=== PATIENT | male | born 1935 | race Two or more races ===

== ENCOUNTER 2020-09-10 16:12 | Inpatient (IN) | payer OTHER ==
[~2020-09-10] VITALS: Ht 185.4 cm; Wt 91.4 kg
[2020-09-10] MEDS ORDERED: ASPirin 81 mg TAB PO ONE (16:30)
[2020-09-10] MEDS ORDERED: MAGNESIUM SULFATE 1GM/100ML 100 ML IV ONE (16:30)
[2020-09-10] MEDS ORDERED: SODIUM CHLORIDE 0.9% 1,000 ML IV ONE (16:30)
[2020-09-10] MEDS ORDERED: METOPROLOL SUCCINATE XL 50 MG TAB PO ONE (17:15)
[2020-09-10] MEDS ORDERED: FUROSEMIDE 40 MG/4 ML VIAL IV ONE (17:15)
[2020-09-10] MEDS ORDERED: METOPROLOL TARTRATE 1MG/1ML-5ML VIAL IV ONE (17:15)
[2020-09-10] MEDS ORDERED: DIGOXIN (250MCG/ML) 2 ML AMPULE IV ONE (17:15)
[2020-09-10 17:17] LABS: Basophils # (auto) 0 10 ^3/uL (0-0.2); Basophils % (auto) 0.2 % (0.0-2.0); Eosinophils # (auto) 0 10 ^3/uL (0-0.8); Eosinophils % (auto) 0.1 % (0.0-7.0); Hematocrit 43.2 % (41.0-53.0); Hemoglobin 14.2 g/dL (13.5-17.5); Lymphocytes % (auto) 10.1 % (10.0-50.0); Mean Corpuscular Hemoglobin 28.1 pg (28.0-32.0); Mean Corpuscular Hgb Conc. 32.9 g/dL (32.0-36.0); Mean Corpuscular Volume 85.4 fL (80.0-100.0); Monocytes # (auto) 1.1 10 ^3/uL (0-1.3); Monocytes % (auto) 11.2 % (0.0-12.0); Neutrophils # (auto) 7.7 10 ^3/uL (1.6-8.6); Neutrophils % (auto) 78.4 % (37.0-80.0); Nucleated Red Blood Cells % 0.2 %; Platelet Count (auto) 150 10^3/uL (140-450); Red Blood Cells 5.06 10^6/uL (4.5-5.90); Red Cell Distribution Width 15.1 % (11.8-14.3); White Blood Cell 9.8 10^3/uL (4.4-10.8)
[2020-09-10 17:30] LABS: Albumin 3.5 g/dL (3.4-5.0); Calcium 8.3 mg/dL (8.5-10.1); Potassium 3.8 mmol/L (3.5-5.1)
[2020-09-10] MEDS ORDERED: NITROGLYCERIN 0.4 MG SL TAB SL PRN ×2 (17:30→18:30)
[2020-09-10] MEDS ORDERED: ENOXAPARIN SOD 40 MG/0.4 ML SYRINGE SC ONE (17:30)
[2020-09-10] MEDS ORDERED: MORPHINE SULF INJ 2 MG/ML SYRINGE 1ML IV PRN ×3 (17:30→18:30)
[2020-09-10 17:34] LABS: INR 1.69 (0.9-1.15); Partial Thromboplastin Time 28.5 sec (23.0-31.2)
[2020-09-10 17:35] LABS: BUN/Creatinine Ratio 36.4; Bilirubin, Total 1.5 mg/dL (0.2-1.0); Total Protein 6.5 g/dL (6.4-8.2)
[2020-09-10] MEDS ORDERED: GLUCTAB8 PO (17:50)
[2020-09-10] MEDS ORDERED: OMEG306C PO (17:50)
[2020-09-10] MEDS ORDERED: VITA100T3 PO (17:50)
[2020-09-10] MEDS ORDERED: CHOL20007 PO (17:50)
[2020-09-10] MEDS ORDERED: CYAN1TAB11 PO (17:50)
[2020-09-10] MEDS ORDERED: ECHI80CA PO (17:50)
[2020-09-10] MEDS ORDERED: ASCO500T11 PO (17:50)
[2020-09-10] MEDS ORDERED: POM (17:53)
[2020-09-10 17:54] LABS: Cholesterol 161 mg/dL (< 200)
[2020-09-10 17:57] LABS: HDL Cholesterol 42 mg/dL (40-59); LDL Cholesterol 113 mg/dL (< 100); Triglycerides 96 mg/dL (< 150)
[2020-09-10] MEDS ORDERED: IOHEXOL 350 MG/ML 100ML IJ ONE (18:24)
[2020-09-10] MEDS ORDERED: ONDANSETRON HCL 4 MG/2 ML VIAL IV PRN (18:30)
[2020-09-10] MEDS ORDERED: ALUM & MAG HYDROX-SIMETH LIQ(MAALOX) 30 ML PO PRN (18:30)
[2020-09-10] MEDS ORDERED: HYDROcodone-ACET 5/325MG TAB PO PRN (18:30)
[2020-09-10] MEDS ORDERED: DOCUSATE SOD 100 MG CAP PO PRN (18:30)
[2020-09-10] MEDS ORDERED: ACETAMINOPHEN 325 MG TAB PO PRN (18:30)
[2020-09-10] MEDS ORDERED: ACETAMINOPHEN 500 MG TAB PO PRN (18:30)
[2020-09-10] MEDS ORDERED: CALCIUM GLUC 4.65meq/50ml D5AE 50 ML IV ONE (18:30)
[2020-09-10] MEDS ORDERED: LORazepam 0.5 MG TAB PO PRN (18:30)
--- NOTE | 2020-09-10 20:44 | NUR ---
tele covid rule out admit from ED pt arrived without report being called. pt via [employer] awake and alert to self, place, reason but had to be oriented as to date. pt on 3L nc no distress noted. pt denies any pain. pt oriented to this nurse and updated on plan of care. pt is tele #1 sinus tach 128bpm. pt did not receive 1730 med lovenox or 1830 med calcium gluconate iv as ordered, this nurse to administer meds per MD and MAR order. pt bed locked, low and 2x rails up. call light in reach, this nurse to round q1hr and prn. pt encouraged to call as needed. Addendum: 09/10/20 at 2306 by ANSELMO WRIGHT RN RN bed alarm active
[2020-09-10] MEDS: SODIUM CHLORIDE 0.9% 1,000 ML IV SCH (21:10)
[2020-09-10 22:00] VITALS: BP 132/86
[2020-09-10] MEDS ORDERED: DOXYCYCLINE 100MG/250ML 250 ML IV SCH (22:00)
[2020-09-10] MEDS ORDERED: ALBUTEROL SULF HFA 90MCG INH 200DOSE IN SCH (22:00)
[2020-09-10] MEDS ORDERED: BUDESONIDE (INHALATION) 180 MCG IH IN SCH (22:00)
[2020-09-11] VITALS (7 sets, daily range): BP systolic 105–132; BP diastolic 52–91
--- NOTE | 2020-09-11 01:22 | NUR ---
bed alarm sounded, this nurse to patient beside where pt sitting up and not responding to verbal cues. pt would shake head "no" when asked if in pain, however was attempting to pull off gown and leads. HR sustaining in the 160's hospitalist paged. ekg done shows sinus tach in the 160's. Addendum: 09/11/20 at 0126 by ANSELMO WRIGHT RN RN nurses remain at bedside whilst waiting for call back hospitalist. rocio baltazar notified.
--- NOTE | 2020-09-11 01:38 | NUR ---
pt voided on bed, pericare and linen change performed. pt no longer pulling at leads or attempting bed exit at this point, 2x rails up, bed locked and low to floor. call light in reach, pt denies any pain and breathing is even and unlabored on 2L.
--- NOTE | 2020-09-11 02:28 | NUR ---
rounds pt breathing even and unlabored at 2L nc. no s/s distress observed. bed locked, low and 2x rails up. call light in reach, will continue to monitor.
[2020-09-11] MEDS ORDERED: dilTIAZem 25 MG/5 ML VIAL IV ONE ×2 (02:45→02:50)
[2020-09-11 05:35] LABS: Basophils # (auto) 0 10 ^3/uL (0-0.2); Basophils % (auto) 0.1 % (0.0-2.0); Eosinophils # (auto) 0 10 ^3/uL (0-0.8); Eosinophils % (auto) 0.5 % (0.0-7.0); Hematocrit 42.8 % (41.0-53.0); Hemoglobin 13.7 g/dL (13.5-17.5); Lymphocytes # (auto) 0.9 10 ^3/uL (0.4-5.4); Lymphocytes % (auto) 10.9 % (10.0-50.0); Mean Corpuscular Hemoglobin 27.4 pg (28.0-32.0); Mean Corpuscular Hgb Conc. 32.1 g/dL (32.0-36.0); Mean Corpuscular Volume 85.6 fL (80.0-100.0); Monocytes # (auto) 0.9 10 ^3/uL (0-1.3); Neutrophils # (auto) 6.2 10 ^3/uL (1.6-8.6); Neutrophils % (auto) 77.5 % (37.0-80.0); Nucleated Red Blood Cells % 0.2 %; Platelet Count (auto) 144 10^3/uL (140-450)
--- NOTE | 2020-09-11 05:35 | NUR ---
report called to Jackeline ARCHER. hospitalist paged for sustained HR in the 130's.
[2020-09-11 05:56] LABS: Potassium 3.4 mmol/L (3.5-5.1)
--- NOTE | 2020-09-11 05:59 | NUR ---
PATIENT ARRIVED TO UNIT RECEIVED REPORT FROM RN, CHUY. PATIENT IS A&O X'S 4 WITH NO S/S OF DISTRESS. PATIENT DOES SEEM TO HAVE SOME PERIODS OF CONFUSION BUT ANSWERS ALL ORIENTATION QUESTIONS APPROPRIATELY. PATIENT TRANSFERRED VIA WHEELCHAIR AND TRANSFERRED SELF INTO BED WITH STEADY GAIT. PROVIDED STANDBY ASSISTANCE. VS TAKEN AND DOCUMENTED. EDUCATED PATIENT ON POC AND TO USE CALL LIGHT WHEN IN NEED OF ANY ASSISTANCE. PATIENT VERBALIZED UNDERSTANDING. PATIENT RECEIVING 2L O2 VIA NC AND TELE BOX [address] AT 95-120'S. HOSPITALIST PAGED AGAIN FOR HIGH HEART RATE. BED IS IN LOWEST/LOCKED POSITION WITH SIDE RAILS UP X'S 2 AND CALL LIGHT IS WITHIN REACH OF PATIENT. BED ALARM IS ON. WILL CONTINUE CARE.
[2020-09-11 06:07] LABS: Albumin 3.1 g/dL (3.4-5.0); BUN/Creatinine Ratio 38.3; Bilirubin, Total 1.3 mg/dL (0.2-1.0); Calcium 8.3 mg/dL (8.5-10.1); Total Protein 5.7 g/dL (6.4-8.2)
[2020-09-11] MEDS ORDERED: AMIODARONE 450mg/250ml AE 250 ML IV SCH ×2 (06:15→12:15)
[2020-09-11] MEDS ORDERED: AMIODARONE HCL 150 MG in D5W 5% 100 ML IV ONE (06:15)
--- NOTE | 2020-09-11 06:35 | NUR ---
CALLED PHARMACY THEY WILL PREPARE AMIO MEDICATION RIGHT NOW AND THEN SEND IT UP. COMMISSARY AGENT IS AWARE OF HAVING TO START A BOLUS ON PATIENT. WILL CONTINUE CARE.
--- NOTE | 2020-09-11 06:46 | NUR ---
STATE PAGE TO MD GUSMAN TO DISCUSS PATIENT'S HR AT THIS TIME AND MEDICATION AMIO ORDERED. Addendum: 09/11/20 at 0648 by DARVIN GRAFF RN RN STAT PAGE*
[2020-09-11 06:52] LABS: Urine Bacteria NONE SEEN /hpf (None Seen); Urine Blood Negative /uL (Negative); Urine Specific Gravity 1.039 (1.001-1.035); Urine WBC 2 /hpf (0 - 3)
--- NOTE | 2020-09-11 06:55 | NUR ---
RECEIVED CALL BACK FROM MD GUSMAN HE ASKED FOR ME TO TAKE A EKG AND SEND IT TO HIM. THIS WAS DONE AT THIS TIME AND EKG WAS SENT AT 0703. MD GUSMAN REVIEWED IT AND CALLED BACK AROUND 07. PER MD, IT IS OKAY TO CONTINUE WITH THE AMIO ORDER ON EMAR. INFORMED DAY SHIFT RN THAT AMIO NEEDS TO BE DONE AT THIS TIME. MEDICATION WAS ALREADY SENT UP BY PHARMACY AND IN MEDICATION ROOM. PATIENT'S HR REMAINING IN 120'S. PATIENT IS ASYMPTOMATIC AND DENIES ANY CP/PALPITATIONS/SOB. WILL ENDORSE CARE NOW.
[2020-09-11 07:07] LABS: Alcohol, Urine < 3.0 mg/dL (0-10); Amphetamine Screen, Urine NEGATIVE (NEGATIVE); Barbiturate Scree,Urine NEGATIVE (NEGATIVE); Benzodiazephine Screen, Urine NEGATIVE (NEGATIVE); Cannabinoid Screen, Urine POSITIVE (NEGATIVE); Cocaine Screen, Urine NEGATIVE (NEGATIVE); Opiate Scree,Urine NEGATIVE (NEGATIVE); Phencyclidine Screen, Urine NEGATIVE (NEGATIVE)
[2020-09-11] MEDS: ALBUTEROL SULF 2.5 MG/0.5ML(0.5%) NEB SOLN NEB SCH ×3 (07:15→22:40)
[2020-09-11] MEDS: SODIUM CHLORIDE 0.9% 1,000 ML IV SCH (07:50)
[2020-09-11] MEDS ORDERED: CALCIUM W/VIT D (600MG/400IU) TAB PO SCH (08:00)
--- NOTE | 2020-09-11 08:46 | NUR ---
AMIODARONE BOLUS Pre bolus vitals: HR:131BPM, 19RR, BP: 123/82, 92%SPO2, 98.1T 5 MIN Post Vitals: HR:119BPM, 18RR, BP:115/69, 93%SPO2 POST bolus VS: HR:117BPM, 16RR, BP:125/66, 93%SPO2 corporate staff accountant Anna at bed side
[2020-09-11] MEDS: FUROSEMIDE 20 MG/2 ML VIAL IV SCH ×2 (09:04→18:00)
[2020-09-11] MEDS ORDERED: ASCORBIC ACID 500 MG TAB PO SCH (10:00)
[2020-09-11] MEDS ORDERED: CHOLECALCIFEROL (VITD3) 2,000 UNIT CAP PO SCH (10:00)
[2020-09-11] MEDS ORDERED: ZINC SULFATE 220mg CAP or TAB PO SCH (10:00)
[2020-09-11] MEDS ORDERED: DexAMETHasone SOD PHOS 10MG/1ML VIAL INJ IV SCH (10:00)
--- NOTE | 2020-09-11 10:10 | NUR ---
nuclear control operator at bed side
[2020-09-11] MEDS: CARVEDILOL 3.125 MG TAB PO SCH ×2 (11:03→21:49)
[2020-09-11] MEDS: CLOPIDOGREL BISULFATE 75 MG TAB PO SCH (11:03)
[2020-09-11] MEDS: ASPirin 81 mg TAB PO SCH (11:03)
[2020-09-11] MEDS: ENOXAPARIN SOD 40 MG/0.4 ML SYRINGE SC SCH (11:04)
--- NOTE | 2020-09-11 12:30 | NUR ---
Patient c/o urgency without successful voiding. Patient states, "I don't think I've been able to pee since yesterday, and at home I was not having this problem" minimum urine output this AM for urine sample collection, totaling about 30mls. None since then. Patient also c/o vision disturbance, describing it as "when I look at the floor or wall I see what appears to be many ants." Will bladder scan patient and notify MD.
--- NOTE | 2020-09-11 12:40 | NUR ---
Bladder Scan measurement show >700mls. Britton hodgson MD. Abdomen is soft, however patient c/o feeling "bladder fullness and continued urgency"
--- NOTE | 2020-09-11 13:11 | NUR ---
RE:Urine output Detailed voicemail left to Dr. Alex Mac. exchange system. Awaiting call back.
--- NOTE | 2020-09-11 13:50 | NUR ---
Dr. Mac at bed side. New orders received, read back and verified. Will implement.
--- NOTE | 2020-09-11 14:00 | NUR ---
re: Azul placement order Unsuccessful attempt to insert azul catheter X2, catheter appears to be fully inserted with zero output, and pain described as pressure and 10/10 for patient. Additional RN at bed side for assistance, azul removed at this time. Will notify
--- NOTE | 2020-09-11 14:23 | NUR ---
300mls voided through urinal. Patient states urgency and pain while urinating.
--- NOTE | 2020-09-11 15:11 | NUR ---
Received call from patients daughter Kenia , update on patients status given after pw provided. Per Kenia patient does suffer from urinary retention and also had prostate removed.
--- NOTE | 2020-09-11 15:35 | NUR ---
Attending MD aware of urology status. No new orders received. Will reach out to Consulting Urologist.
--- NOTE | 2020-09-11 15:50 | NUR ---
UROLOGY notified REYES Badillo of unsuccessful attempts to place azul catheter, and patients continued urgency and retention. New orders received, read back and verified. Will implement.
[2020-09-11] MEDS ORDERED: LIDOCAINE 2% JELLY 11ml (GLYDO) UR ONE (16:00)
[2020-09-11] MEDS ORDERED: LIDOCAINE 2% JELLY 11ml (GLYDO) ONE (16:02)
--- NOTE | 2020-09-11 16:40 | NUR ---
Urology REYES Peter at bed side fro azul placement/consultation
[2020-09-11] MEDS: TAMSULOSIN HYDROCHLORIDE 0.4 MG CAP PO SCH (18:29)
[2020-09-11 19:09] LABS: INR 1.39 (0.9-1.15)
--- NOTE | 2020-09-11 19:40 | NUR ---
Opening Shift Note Assumed care of patient, awake and alert. No S/S of distress/SOB or pain. Updated on POC and to call for assist PRN, patient verbalized understanding. Bed in lowest position, bed alarm on, call light within reach, will continue to monitor for changes Q1hr and PRN.
--- NOTE | 2020-09-11 20:00 | NUR ---
Instructed patient to be NPO after MN, for Cystoscopy and azul placement tomorrow, patient verbalized understanding
--- NOTE | 2020-09-11 22:07 | NUR ---
Received a call from Lab of a Positive Blood Culture gram (+) cocci in cluster. Paged , awaiting call back
--- NOTE | 2020-09-11 22:34 | NUR ---
called and spoke to Dr. Merritt, updated on patient's status and reason for call. Received new order to repeat blood culture.
[2020-09-12 05:23] VITALS: BP 100/70
[2020-09-12] MEDS: FUROSEMIDE 20 MG/2 ML VIAL IV SCH ×2 (06:00→18:00)
[2020-09-12 06:57] LABS: Basophils # (auto) 0 10 ^3/uL (0-0.2); Basophils % (auto) 0.2 % (0.0-2.0); Eosinophils # (auto) 0.1 10 ^3/uL (0-0.8); Eosinophils % (auto) 1.8 % (0.0-7.0); Hematocrit 42.3 % (41.0-53.0); Hemoglobin 13.7 g/dL (13.5-17.5); Lymphocytes # (auto) 0.9 10 ^3/uL (0.4-5.4); Lymphocytes % (auto) 12.3 % (10.0-50.0); Mean Corpuscular Hemoglobin 27.9 pg (28.0-32.0); Mean Corpuscular Hgb Conc. 32.4 g/dL (32.0-36.0); Monocytes # (auto) 0.9 10 ^3/uL (0-1.3); Monocytes % (auto) 11.4 % (0.0-12.0); Neutrophils # (auto) 5.5 10 ^3/uL (1.6-8.6); Neutrophils % (auto) 74.3 % (37.0-80.0); Nucleated Red Blood Cells % 0.1 %; Platelet Count (auto) 143 10^3/uL (140-450); Red Blood Cells 4.92 10^6/uL (4.5-5.90); Red Cell Distribution Width 15.4 % (11.8-14.3); White Blood Cell 7.4 10^3/uL (4.4-10.8)
--- NOTE | 2020-09-12 07:05 | NUR ---
Patient able to urinate with a total of 550ml urine
[2020-09-12] MEDS: ALBUTEROL SULF 2.5 MG/0.5ML(0.5%) NEB SOLN NEB SCH ×2 (07:08→23:03)
[2020-09-12 07:22] LABS: Albumin 2.9 g/dL (3.4-5.0); BUN/Creatinine Ratio 32.2; Bilirubin, Direct 0.5 mg/dL (0-0.2); Bilirubin, Total 1.1 mg/dL (0.2-1.0); Calcium 8.2 mg/dL (8.5-10.1); Magnesium 2.6 mg/dL (1.6-2.6); Total Protein 5.8 g/dL (6.4-8.2)
--- NOTE | 2020-09-12 07:40 | NUR ---
OPENING NOTE ASSUMED CARE OF PT. ALERT AND ORIENTED. NO S/S OF SOB/DISTRESS NOTED. BED SET TO LOWEST POSITION/LOCKED, BEDSIDE RAILS UP X2, CALL LIGHT WITHIN REACH. INSTRUCTED PT TO CALL FOR ASSISTANCE. UPDATE ON POC. PT VERBALIZED UNDERSTANDING. WILL CONTINUE TO MONITOR Q1HR AND PRN.
[2020-09-12 09:00] VITALS: BP 118/76
[2020-09-12] MEDS: CLOPIDOGREL BISULFATE 75 MG TAB PO SCH (10:00)
[2020-09-12] MEDS: ENOXAPARIN SOD 40 MG/0.4 ML SYRINGE SC SCH (10:00)
[2020-09-12] MEDS: ASPirin 81 mg TAB PO SCH (10:07)
[2020-09-12] MEDS: CARVEDILOL 3.125 MG TAB PO SCH ×2 (10:08→21:41)
[2020-09-12 10:36] LABS: Hepatitis A Ab IgM Negative; Hepatitis B Core IgM Negative; Hepatitis B Surface Antigen Negative (Negative); Hepatitis C Antibody Negative (Negative)
--- NOTE | 2020-09-12 10:47 | NUR ---
MEDICATION HELD PLAVIX AND LOVENOX MEDICATION HELD PER MD ORDERS, SEE COMMUNICATION NOTES.
--- NOTE | 2020-09-12 11:41 | NUR ---
PAGED DR. Alex COOL RE: TELE STRIP. PATIENT IS A-FIV WITH PVC'S. AWAITING CALL BACK.
--- NOTE | 2020-09-12 11:50 | NUR ---
CARDIO PAGED CRYOGENIC TRANSPORT DRIVER, CACHORRO RE: TELE STRIP. PATIENT IS A-FIV WITH PVC'S. AWAITING CALL BACK.
--- NOTE | 2020-09-12 12:13 | NUR ---
PRE-OP RECEIVED CALL FROM GIANNI FREDERICK. PROCEDURE IS ON HOLD PER ANESTHESIA STANDPOINT. PATIENT EF 8%. WILL INFORM .
--- NOTE | 2020-09-12 12:16 | NUR ---
PAGED DR. Alex COOL. RE: PROCEDURE. AWAITING CALL BACK.
[2020-09-12 13:00] VITALS: BP 117/84
--- NOTE | 2020-09-12 14:25 | NUR ---
UROLOGY LEFT MESSAGE FOR DR. NORRIS RE: CYSTOSCOPY. AT HIS OFFICE WITH CAROLIN. AWAITING CALL BACK.
--- NOTE | 2020-09-12 14:25 | NUR ---
Assessment Patient is an 85-year-old male who is alert and oriented. Prior to admission patient lived home with his Rossy and functioned independently. Patient can care for his own ADL's. Patient will return to his prior living arrangements post discharge and his will transport him home. Advised patient there is a social service consult for home health safety evaluation and referral to CHF clinic. Informed patient clinical information will be faxed to [facility] and Health plan. Informed patient he has the right to participate in all discharge planning. Patient verbalized understanding and agreed to discharge plan. Faxed clinical information to [facility] and [facility]. Per Lexie with [facility] patient has been accepted and service to start within 24-48hrs upon d/c day. FADI Crystal will refer patient to CHF clinic. Addendum: 09/12/20 at 1430 by EKATERINA REINA SS Amended: Links added.
--- NOTE | 2020-09-12 14:33 | NUR ---
UROLOGY SPOKE TO DR. NORRIS RE: CYSTOSCOPY. PER DR. NORRIS PATIENT CAN BE TRANSFERRED TO HIGHER LEVEL OF CARE OR FOLLOW UP OUTPATIENT. WILL INFORM .
--- NOTE | 2020-09-12 15:12 | NUR ---
I faxed order for outpatient follow-up/EUS to [facility].
--- NOTE | 2020-09-12 16:12 | NUR ---
CARDIO JARRETT CUETO NP. RE: SURGICAL CLEARANCE. AWAITING CALL BACK.
--- NOTE | 2020-09-12 16:17 | NUR ---
CARDIO SPOKE TO UTE IVORY AT NURSES STATION RE: CARDIAC CLEARANCE.
[2020-09-12 17:00] VITALS: BP 112/71
[2020-09-12] MEDS: TAMSULOSIN HYDROCHLORIDE 0.4 MG CAP PO SCH (18:00)
--- NOTE | 2020-09-12 19:30 | NUR ---
Opening Shift Note Assumed care of patient, awake and alert. No S/S of distress/SOB or pain. Updated on POC and to be NPO after MN. For possible Cystoscopy tomorrow. Instructed to call for assist PRN, patient verbalized understanding. Bed in lowest position, bed alarm on, call light within reach, will continue to monitor for changes Q1hr and PRN.
[2020-09-12] MEDS: SACUBITRIL-VALSARTAN 24mg/26mg TAB PO SCH (21:41)
[2020-09-12 21:48] VITALS: BP 137/74
--- NOTE | 2020-09-13 02:45 | NUR ---
Faxed request to [facility] and confirmed with Kimo Faust
[2020-09-13 05:20] VITALS: BP 122/63
[2020-09-13] MEDS: FUROSEMIDE 20 MG/2 ML VIAL IV SCH ×2 (05:24→19:22)
[2020-09-13] MEDS: ALBUTEROL SULF 2.5 MG/0.5ML(0.5%) NEB SOLN NEB SCH ×3 (06:20→22:00)
[2020-09-13] MEDS ORDERED: IOHEXOL 300 MG/ML 100ML BOTTLE IJ ONE (08:05)
[2020-09-13 09:00] VITALS: BP 118/68
[2020-09-13] MEDS: SACUBITRIL-VALSARTAN 24mg/26mg TAB PO SCH ×2 (09:32→22:00)
[2020-09-13] MEDS: CARVEDILOL 3.125 MG TAB PO SCH ×2 (09:32→22:00)
[2020-09-13] MEDS: ASPirin 81 mg TAB PO SCH (09:33)
--- NOTE | 2020-09-13 11:23 | NUR ---
MONICA TAM AT BEDSIDE.
--- NOTE | 2020-09-13 11:37 | NUR ---
I faxed life vest order to [facility] and [facility]. I spoke with [employer] [employer] Marah-she is aware of the life vest order and will work on the authorization. She is also aware of the order for outpatient follow up for EUS and will follow up on that as well.
[2020-09-13] MEDS: ENOXAPARIN SOD 40 MG/0.4 ML SYRINGE SC SCH (12:53)
[2020-09-13 13:00] VITALS: BP 126/67
--- NOTE | 2020-09-13 14:29 | NUR ---
MD GUSMAN AWARE OF PATIENTS HR. NEW ORDERS RECEIVED.
[2020-09-13] MEDS ORDERED: DIGOXIN 0.25 MG TAB PO ONE (14:30)
[2020-09-13] MEDS ORDERED: DIGO0.1238 PO (14:44)
[2020-09-13] MEDS ORDERED: AMIO200T4 PO (14:44)
[2020-09-13] MEDS ORDERED: SACU1TAB PO (14:44)
[2020-09-13] MEDS ORDERED: CAR3125T PO (14:44)
[2020-09-13] MEDS ORDERED: FURO1TAB33 PO (14:44)
[2020-09-13] MEDS ORDERED: TAM04C PO (14:44)
[2020-09-13] MEDS ORDERED: ASPI81CH43 PO (14:44)
[2020-09-13] MEDS ORDERED: CLOP75TA28 PO (14:44)
--- NOTE | 2020-09-13 15:30 | NUR ---
SPOKE WITH FADI TOBAR. PATIENT IS 95% ON ROOM AIR AND MAINTAINS.
--- NOTE | 2020-09-13 16:56 | NUR ---
D/C planning Regarding social service consult for home oxygen at 3 l/min. Faxed clinical information to [facility] if patient meets criteria for home oxygen they will deliver oxygen to bedside.
--- NOTE | 2020-09-13 17:27 | NUR ---
D/C Planning [facility] contact me advising me patient does not meet criteria for home oxygen.
--- NOTE | 2020-09-13 17:30 | NUR ---
PATIENT GAVE PERMISSION TO UPDATE DAUGHTER VIRY ON POC.
[2020-09-13] MEDS: TAMSULOSIN HYDROCHLORIDE 0.4 MG CAP PO SCH (19:22)
--- NOTE | 2020-09-13 19:35 | NUR ---
Student Dean from [facility] her to place life vest on patient and educate regarding its use.
[2020-09-13 19:40] VITALS: BP 105/72
--- NOTE | 2020-09-13 19:58 | NUR ---
Paged MD Echevarria, to get clearance from cardiology for discharge clearance, per MD Burt's discharge order.
--- NOTE | 2020-09-13 20:05 | NUR ---
Spoke to MD Echevarria. Patient is cleared to be discharged home. Will start discharge.
--- NOTE | 2020-09-13 20:12 | NUR ---
Spoke to MD Villalta and notified him that MD Echevarria said patient is clear for discharge.
[2020-09-13 20:50] VITALS: BP 99/72
--- NOTE | 2020-09-13 21:32 | NUR ---
Spoke to patient's at length about discharge and education regarding Zoll life vest. is upset that patient is being discharged in the middle of the night and thinks it is wrong. I told her that per MD Villalta, patient is to be discharged after Zoll life vest arrival and that he was informed and agreed that patient should be discharged. cannot drive at night but is able to have neighbor driver's license examiner her to hospital to [place].
--- NOTE | 2020-09-13 21:53 | NUR ---
Unable to make appointments or fax to primary per protocol for discharge needs because it is after hours and we are unable to fax information
[2020-09-13] MEDS ORDERED: AMIODARONE HCL 200 MG TAB PO SCH (22:00)
--- NOTE | 2020-09-13 22:00 | NUR ---
Discharge instructions given as ordered. Encourage to follow up with PMD as instructed. All questions and concerns addressed. Patient verbalized understanding. Medication reconciliation form completed and copy given to patient. IV removed with catheter intact, pressure dressing applied. Telemetry unit returned to ICU. Patient taken to vehicle via wheelchair with all personal belongings, and wearing Z[employer] life vest, accompanied by staff and family member. No distress noted at time of departure.
[2020-09-13 22:06] VITALS: BP 95/72
--- NOTE | 2020-09-14 06:45 | NUR ---
Recieved a call from Kenia, patients daughter. Upset about how and when he was discharged. Also looking for his personal belongings which were clothing and full set of dentures. Family was referred to [id number].
[2020-09-14] MEDS ORDERED: DIGOXIN 0.125 MG TAB PO SCH (10:00)
== END 2020-09-13 21:55 | disposition home health service (06) | DRG 291 ==
LOC: ER 16:12 → EDBD 16:12 → TELE 16:13 → TELE-EAST 20:20 → TELE-WESTW 09-11 05:40
PROVIDERS: ADMIT Hospitalist; ATTEND Internal Medicine
DX: I13.0 Hypertensive heart and chronic kidney disease with heart failure and stage 1 through stage 4 chronic kidney disease, or unspecified chronic kidney disease (principal); I50.21 Acute systolic (congestive) heart failure; N17.0 Acute kidney failure with tubular necrosis; S22.21XA Fracture of manubrium, initial encounter for closed fracture; I47.1 Supraventricular tachycardia; B17.9 Acute viral hepatitis, unspecified; I48.92 Unspecified atrial flutter; N13.8 Other obstructive and reflux uropathy; I48.0 Paroxysmal atrial fibrillation; I42.9 Cardiomyopathy, unspecified; N18.9 Chronic kidney disease, unspecified; E78.5 Hyperlipidemia, unspecified; N40.1 Benign prostatic hyperplasia with lower urinary tract symptoms; Z20.828 Contact with and (suspected) exposure to other viral communicable diseases; X58.XXXA Exposure to other specified factors, initial encounter; Y93.89 Activity, other specified; Y92.89 Other specified places as the place of occurrence of the external cause; Y99.8 Other external cause status; M19.90 Unspecified osteoarthritis, unspecified site; R33.9 Retention of urine, unspecified; K86.9 Disease of pancreas, unspecified
CPT/HCPCS: 36415; 36600; 71045; 71275; 74176; 74178; 74183; 80048; 80053; 80061; 80074; 80076; 80307; 81001; 82378; 82728; 82805; 83036; 83605; 83615; 83735; 83880; 84100; 84154; 84443; 84484; 85025; 85379; 85610; 85730; 86141; 86301; 87040; 87077; 87086; 87186; 87426; 87804; 93005; 93306; 93886; 94640; G0378; J0610; J3490; J7060